=== PATIENT | female | born 2000 | race Caucasian/White ===

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

== ENCOUNTER 2018-03-13 12:19 | Emergency (ER) | payer MEDICAID ==
[~2018-03-13] VITALS: Ht 157.5 cm; Wt 90.7 kg
[2018-03-13 12:24] VITALS: BP_SYST 126
[2018-03-13] MEDS ORDERED: DIPHENHYDRAMINE INJ 50 MG/ML VIAL IM ONE (14:45)
[2018-03-13] MEDS ORDERED: LORazepam 2 MG/ML VIAL (FOR ER USE) IM ONE (14:45)
[2018-03-13 15:20] VITALS: BP_SYST 133
== END 2018-03-13 15:16 ==
LOC: SED 12:19
DX: F60.3 Borderline personality disorder (principal); F25.9 Schizoaffective disorder, unspecified; F31.9 Bipolar disorder, unspecified; R03.0 Elevated blood-pressure reading, without diagnosis of hypertension
CPT/HCPCS: 70486; 96372; 99284; J1200; J2060